=== PATIENT | female | born 1995 ===

== ENCOUNTER 2017-03-27 16:10 | Emergency (ER) | payer BC ==
[~2017-03-27] VITALS: Ht 160 cm; Wt 63.5 kg
--- NOTE | 2017-03-27 16:19 | ER Report ---
History and Physical Time Seen By MD: 16:19 HPI/ROS CHIEF COMPLAINT: Vomiting, nausea HISTORY OF PRESENT ILLNESS: 22-year-old female patient presents to emergency room with complaint of vomiting, nausea. Patient states this been going on today. She states that she's vomited shortly after every meal. She denies having any fevers, chills, sore throat, headache. She states that she's felt nauseated throughout the day. Patient states her last visit. Was approximately one week ago. She states she has a IUD she is using for control. Patient does not believe she can be . Patient states she has pain right upper quadrant. REVIEW OF SYSTEMS: Respiratory: No cough, no dyspnea. Cardiovascular: No chest pain, no palpitations. Gastrointestinal: As noted above Musculoskeletal: No back pain. Allergies: Coded Allergies: No Known Drug Allergies (Unverified , 03/27/17) Home Meds Active Scripts Ondansetron (ZOFRAN ODT) 4 Mg Tab.rapdis, 4 MG PO Q6H Y for NAUSEA/VOMITING, # 20 TAB.CHIQUITA Prov:KIMMIE NARVAEZ BODY MAKER 03/27/17 Past Medical/Surgical History Patient has a past medical history of asthma, pneumonia, anemia, PTSD. Patient has no pertinent surgical history. Reviewed Nurses Notes: Yes Constitutional Vital Sign - Last 24 Hours 03/27/17 16:19 Temp 97.8 Pulse 104 Resp 14 B/P (MAP) 123/88 Pulse Ox 96 O2 Delivery Room Air Physical Exam General Appearance: The patient is alert, has no immediate need for airway protection and no current signs of toxicity. ENT: Tympanic membranes are pearly-farmer, auditory canals are patent, mucous membranes are moist. Respiratory: Chest is non tender, lungs are clear to auscultation. Cardiac: regular rate and rhythm Gastrointestinal: Abdomen is soft and mildly tender in the right upper quadrant , no masses, bowel sounds normal. Musculoskeletal: Neck: Neck is supple and non tender. Extremities have full range of motion and are non tender. Skin: No rashes or lesions. DIFFERENTIAL DIAGNOSIS: After history and physical exam differential diagnosis was considered for nausea and vomiting including but not limited to gastroenteritis, gastritis, appendicitis, and medication side effect. Medical Decision Making Data Points Result Diagram: 03/27/17 1635 03/27/17 1635 Laboratory Hematology Test 03/27/17 16:14 03/27/17 16:35 Urine Color Yellow Urine Clarity Slightly-cloudy Urine pH 7.0 pH (4.8-9.5) Urine Specific Grants 1.020 Urine Protein Negative mg/dL (NEGATIVE) Urine Glucose (UA) Negative mg/dL (NEGATIVE) Urine Ketones Negative mg/dL (NEGATIVE) Urine Blood Negative (NEGATIVE) Urine Nitrite Negative (NEGATIVE) Urine Bilirubin Negative (NEGATIVE) Urine Urobilinogen Negative mg/dL (0.2-1.9) Urine Leukocyte Esterase Negative (NEGATIVE) Urine RBC 1 /HPF (0-2/HPF) Urine WBC 1 /HPF (0-5/HPF) Urine Squamous Epithelial Cells Many /LPF (</=FEW) Urine Bacteria Few /HPF (NONE-FEW) Urine Mucus None /HPF (NONE-FEW) Red Blood Count 5.50 M/uL (4.17-5.56) Mean Corpuscular Volume 83.5 fL (80.0-96.0) Mean Corpuscular Hemoglobin 28.4 pg (26.0-33.0) Mean Corpuscular Hemoglobin Concent 34.0 g/dL (32.0-36.0) Red Cell Distribution Width 13.6 % (11.5-14.5) Mean Platelet Volume 6.7 fL (7.2-11.1) Neutrophils (%) (Auto) 55.9 % (39.4-72.5) Lymphocytes (%) (Auto) 34.4 % (17.6-49.6) Monocytes (%) (Auto) 7.6 % (4.1-12.4) Eosinophils (%) (Auto) 1.5 % (0.4-6.7) Basophils (%) (Auto) 0.6 % (0.3-1.4) Nucleated RBC Relative Count (auto) 0.0 /100WBC Neutrophils # (Auto) 3.4 K/uL (2.0-7.4) Lymphocytes # (Auto) 2.1 K/uL (1.3-3.6) Monocytes # (Auto) 0.5 K/uL (0.3-1.0) Eosinophils # (Auto) 0.1 K/uL (0.0-0.5) Basophils # (Auto) 0.0 K/uL (0.0-0.1) Nucleated RBC Absolute Count (auto) 0.00 K/uL Sodium Level 139 mmol/L (137-145) Potassium Level 3.5 mmol/L (3.5-5.0) Chloride Level 99 mmol/L (98-107) Carbon Dioxide Level 26 mmol/L (22-31) Blood Urea Nitrogen 9 mg/dl (7-18) Creatinine 0.80 mg/dl (0.52-1.04) Glomerular Filtration Rate Calc > 60.0 Random Glucose 104 mg/dl (75-110) Calcium Level 9.8 mg/dl (8.4-10.2) Total Bilirubin 0.6 mg/dl (0.2-1.3) Aspartate Amino Transf (AST/SGOT) 27 U/L (0-35) Alanine Aminotransferase (ALT/SGPT) 34 U/L (0-56) Alkaline Phosphatase 76 U/L (0-126) Total Protein 8.2 gm/dl (6.3-8.2) Albumin 4.6 g/dl (3.5-5.0) Amylase Level 61 U/L (0-110) Lipase 84 U/L (23-300) Human Chorionic Gonadotropin, Qual Negative (NEGATIVE) Chemistry Test 03/27/17 16:14 03/27/17 16:35 Urine Color Yellow Urine Clarity Slightly-cloudy Urine pH 7.0 pH (4.8-9.5) Urine Specific Grants 1.020 Urine Protein Negative mg/dL (NEGATIVE) Urine Glucose (UA) Negative mg/dL (NEGATIVE) Urine Ketones Negative mg/dL (NEGATIVE) Urine Blood Negative (NEGATIVE) Urine Nitrite Negative (NEGATIVE) Urine Bilirubin Negative (NEGATIVE) Urine Urobilinogen Negative mg/dL (0.2-1.9) Urine Leukocyte Esterase Negative (NEGATIVE) Urine RBC 1 /HPF (0-2/HPF) Urine WBC 1 /HPF (0-5/HPF) Urine Squamous Epithelial Cells Many /LPF (</=FEW) Urine Bacteria Few /HPF (NONE-FEW) Urine Mucus None /HPF (NONE-FEW) White Blood Count 6.1 k/uL (4.5-11.0) Red Blood Count 5.50 M/uL (4.17-5.56) Hemoglobin 15.6 g/dL (12.0-16.0) Hematocrit 45.9 % (34.0-47.0) Mean Corpuscular Volume 83.5 fL (80.0-96.0) Mean Corpuscular Hemoglobin 28.4 pg (26.0-33.0) Mean Corpuscular Hemoglobin Concent 34.0 g/dL (32.0-36.0) Red Cell Distribution Width 13.6 % (11.5-14.5) Platelet Count 255 K/uL (150-450) Mean Platelet Volume 6.7 fL (7.2-11.1) Neutrophils (%) (Auto) 55.9 % (39.4-72.5) Lymphocytes (%) (Auto) 34.4 % (17.6-49.6) Monocytes (%) (Auto) 7.6 % (4.1-12.4) Eosinophils (%) (Auto) 1.5 % (0.4-6.7) Basophils (%) (Auto) 0.6 % (0.3-1.4) Nucleated RBC Relative Count (auto) 0.0 /100WBC Neutrophils # (Auto) 3.4 K/uL (2.0-7.4) Lymphocytes # (Auto) 2.1 K/uL (1.3-3.6) Monocytes # (Auto) 0.5 K/uL (0.3-1.0) Eosinophils # (Auto) 0.1 K/uL (0.0-0.5) Basophils # (Auto) 0.0 K/uL (0.0-0.1) Nucleated RBC Absolute Count (auto) 0.00 K/uL Glomerular Filtration Rate Calc > 60.0 Calcium Level 9.8 mg/dl (8.4-10.2) Total Bilirubin 0.6 mg/dl (0.2-1.3) Aspartate Amino Transf (AST/SGOT) 27 U/L (0-35) Alanine Aminotransferase (ALT/SGPT) 34 U/L (0-56) Alkaline Phosphatase 76 U/L (0-126) Total Protein 8.2 gm/dl (6.3-8.2) Albumin 4.6 g/dl (3.5-5.0) Amylase Level 61 U/L (0-110) Lipase 84 U/L (23-300) Human Chorionic Gonadotropin, Qual Negative (NEGATIVE) Urinalysis Test 03/27/17 16:14 Urine Color Yellow Urine Clarity Slightly-cloudy Urine pH 7.0 pH (4.8-9.5) Urine Specific Grants 1.020 Urine Protein Negative mg/dL (NEGATIVE) Urine Glucose (UA) Negative mg/dL (NEGATIVE) Urine Ketones Negative mg/dL (NEGATIVE) Urine Blood Negative (NEGATIVE) Urine Nitrite Negative (NEGATIVE) Urine Bilirubin Negative (NEGATIVE) Urine Urobilinogen Negative mg/dL (0.2-1.9) Urine Leukocyte Esterase Negative (NEGATIVE) Urine RBC 1 /HPF (0-2/HPF) Urine WBC 1 /HPF (0-5/HPF) Urine Squamous Epithelial Cells Many /LPF (</=FEW) Urine Bacteria Few /HPF (NONE-FEW) Urine Mucus None /HPF (NONE-FEW) EKG/Imaging Imaging Abdominal series with single view of the chest: 03/27/2017 4:31 PM HISTORY: Right-sided abdominal pain, nausea and vomiting. COMPARISON:none. FINDINGS: Some stool seen throughout colon. Bowel gas pattern is nonobstructed and nondilated. Abdominal soft tissues are grossly normal without suspicious lucencies or abnormal callus cases. IUD seen in the pelvis. No acute bony abnormality. Lungs show no consolidation, pleural effusion, pneumothorax or nodule. Cardiomediastinal silhouette and pulmonary vessels within normal limits. No acute bony abnormality. IMPRESSION: 1. Unremarkable exam of the abdomen. 2. No acute cardiopulmonary process. Report Dictated By: Cristhian Marcial at 03/27/2017 5:27 PM Report E-Signed By: Cristhian Marcial at 03/27/2017 5:28 PM ED Course/Re-evaluation ED Course Patient was admitted to exam room, history and physical obtained. Differential diagnoses were considered. On examination patient had mild tenderness in the right upper quadrant. A CBC, CMP, amylase, lipase, acute abdominal x-ray were done. Lab results were unremarkable, the x-ray was also unremarkable. Urinalysis was obtained which was also negative. I discussed the findings with patient. We'll go ahead and discharge her at this time. Patient will be given Zofran to help with nausea. Patient verbalized understanding and agreement with plan. Decision to Disposition Date: Mar 27, 2017 Decision to Disposition Time: 17:42 Depart Departure Latest Vital Signs Vital Signs Date Time Temp Pulse Resp B/P (MAP) Pulse Ox O2 Delivery O2 Flow Rate FiO2 03/27/17 16:19 97.8 104 14 123/88 96 Room Air Impression: Primary Impression: Gastroenteritis Condition: Improved Disposition: HOME OR SELF-CARE New Scripts Ondansetron (ZOFRAN ODT) 4 Mg Tab.rapdis 4 MG PO Q6H Y for NAUSEA/VOMITING, #20 TAB.CHIQUITA Prov: KIMMIE NARVAEZ 03/27/17 Patient Instructions: Gastroenteritis (ED) Additional Instructions: Increase fluid intake. Clear liquid diet for the next 24-48 hours. After that you may advance diet as tolerated starting with complex carbohydrates ; rice, bread or pasta. Follow up with your primary care provider in the next week. Return to the ER if condition worsens. KIMMIE NARVAEZ Mar 27, 2017 16:19
[2017-03-27 16:30] VITALS: BP 116/87
[2017-03-27] MEDS ORDERED: NS(*) 0.9% 1000 ML BAG 1,000 ML IV ONE (16:31)
[2017-03-27] MEDS ORDERED: ONDANSETRON 4 MG/2 ML VIAL IVP ONE (16:35)
[2017-03-27 16:40] LABS: PLATELET COUNT, AUTOMATED 255 K/uL (150-450)
--- NOTE | 2017-03-27 17:31 | RADIOLOGY IMAGING REPORT ---
FACILITY: [facility] - [place] PATIENT NAME: Cheryl Boo : 1995 MR: [id number] V: [id number] EXAM DATE: ORDERING PHYSICIAN: KIMMIE NARVAEZ TECHNOLOGIST: Location: [facility] [place] Patient: Cheryl Boo : 1995 Visit/Account:[id number] Date of Sevice: 03/27/2017 Abdominal series with single view of the chest: 03/27/2017 4:31 PM HISTORY: Right-sided abdominal pain, nausea and vomiting. COMPARISON:none. FINDINGS: Some stool seen throughout colon. Bowel gas pattern is nonobstructed and nondilated. Abdom inal soft tissues are grossly normal without suspicious lucencies or abnormal callus cases. IUD seen in the pelvis. No acute bony abnormality. Lungs show no consolidation, pleural effusion, pneumothorax or nodule. Cardiomediastinal silhouette and pulmonary vessels within normal limits. No acute bony abnormality. IMPRESSION: 1. Unremarkable exam of the abdomen. 2. No acute cardiopulmonary process. Report Dictated By: Cristhian Marcial at 03/27/2017 5:27 PM Report E-Signed By: Cristhian Marcial at 03/27/2017 5:28 PM WSN:[id number]
[2017-03-27] MEDS ORDERED: ONDA4TAB PO (17:41)
== END 2017-03-27 17:56 | disposition home or self-care (01) ==
LOC: ER 16:19
DX: K52.9 Noninfective gastroenteritis and colitis, unspecified (principal)
CPT/HCPCS: 74022; 81001; 82150; 83690; 84703; 85025; 96361; 96374; 99284; J2405; J7030; 82040; 82247; 82310; 82374; 82435; 82565; 82947; 84075; 84132; 84155; 84295; 84450; 84460; 84520

== ENCOUNTER 2018-01-07 10:10 | Emergency (ER) | payer BC ==
[~2018-01-07 10:10] MED LIST: ONDA4TAB PO
--- NOTE | 2018-01-07 10:15 | ER Report ---
History and Physical Time Seen By MD: 10:12 HPI/ROS CHIEF COMPLAINT: Ear pain and sinus pressure HISTORY OF PRESENT ILLNESS: Patient is a 22-year-old female who is otherwise healthy who presents with about a week and a half worth of upper respiratory symptoms including stuffy nose B/L lateral ear pain right greater than left, and nasal congestion. Patient reports feeling sick approximately 2 weeks ago had an interval where she improved and then started feeling ill again over the past few days. Reports that she is a smoker. Denies any chest pain or cough. REVIEW OF SYSTEMS: ENT: Bilateral ear pain nasal congestion. Respiratory: No cough, no dyspnea. Cardiovascular: No chest pain, no palpitations. Gastrointestinal: No vomiting, no abdominal pain. Musculoskeletal: No back pain. Allergies: Coded Allergies: No Known Drug Allergies (Unverified , 01/07/18) Home Meds Active Scripts Pseudoephedrine Hcl (SUDAFED 12 HOUR) 120 Mg Tablet.er, 120 MG PO Q12H for congestion, #30 TAB 0 Refills Prov:MARGAUX GARCIA MD 01/07/18 Amoxicillin/Pot Clav 875-125 Mg Tab (AUGMENTIN 875-125 TABLET) 1 Each Tablet, 1 TAB PO Q12H for 10 Days, #20 TAB 0 Refills Prov:MARGAUX GRACIA MD 01/07/18 Discontinued Scripts Ondansetron (ZOFRAN ODT) 4 Mg Tab.rapdis, 4 MG PO Q6H PRN for NAUSEA/VOMITING, #20 TAB.CHIQUITA Prov:KIMMIE NARVAEZ DRAPERY EXAMINER 03/27/17 Past Medical/Surgical History Noncontributory Hx Substance Use Disorder: No Hx Alcohol Use: No Constitutional Vital Sign - Last 24 Hours 01/07/18 01/07/18 10:14 10:54 Temp 98.2 Pulse 102 Resp 20 B/P (MAP) 115/63 102/74 (83) Pulse Ox 97 O2 Delivery Room Air Physical Exam General Appearance: Alert, no distress. Eyes: Pupils equal and round no pallor or injection. ENT, Mouth: Ears: Tympanic membranes are normal. Mild tenderness to sinuses by percussion Nose: No bleeding. Mouth: Mucous membranes are moist. Throat: No erythema or exudates there is no tonsillar hypertrophy and uvula is midline. Musculoskeletal: Neck is supple non tender, no adenopathy. Skin: Warm and dry, no rashes. Medical Decision Making ED Course/Re-evaluation ED Course Suspect acute sinusitis which she with outpatient antibiotics and decongestants. Decision to Disposition Date: Jan 07, 2018 Decision to Disposition Time: 10:41 Depart Departure Latest Vital Signs Vital Signs Date Time Temp Pulse Resp B/P (MAP) Pulse Ox O2 Delivery O2 Flow Rate FiO2 01/07/18 10:54 102/74 (83) 01/07/18 10:14 98.2 102 20 97 Room Air Impression: Primary Impression: Acute sinusitis Condition: Improved Disposition: HOME OR SELF-CARE New Scripts Pseudoephedrine Hcl (SUDAFED 12 HOUR) 120 Mg Tablet.er 120 MG PO Q12H for congestion, #30 TAB 0 Refills Prov: MARGAUX GARCIA MD 01/07/18 Amoxicillin/Pot Clav 875-125 Mg Tab (AUGMENTIN 875-125 TABLET) 1 Each Tablet 1 TAB PO Q12H for 10 Days, #20 TAB 0 Refills Prov: MARGAUX GARCIA MD 01/07/18 Departure Forms: ER Transition Record, Medications Reconciliation, Off Work/School Form, School or Work Release?: School Number of days to be released: 1 Patient Portal Information Patient Instructions: Sinusitis (ED) Problem Qualifiers Primary Impression: Acute sinusitis Sinusitis location: unspecified location Recurrence: not specified as recurrent Qualified Codes: J01.90 - Acute sinusitis, unspecified MARGAUX GARCIA MD Jan 07, 2018 10:15
[2018-01-07] MEDS ORDERED: AMOX-559 PO (10:42)
[2018-01-07] MEDS ORDERED: PSEU120T69 PO (10:42)
[2018-01-07 10:54] VITALS: BP 102/74
== END 2018-01-07 10:54 | disposition home or self-care (01) ==
LOC: ER 10:24
DX: J01.90 Acute sinusitis, unspecified (principal)
CPT/HCPCS: 99281

== ENCOUNTER 2018-01-09 09:34 | Emergency (ER) | payer BC ==
[~2018-01-09 09:34] MED LIST changes: +AMOX-559 PO; +PSEU120T69 PO
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
[2018-01-09 09:47] VITALS: BP 127/65
[2018-01-09 10:20] LABS: PLATELET COUNT, AUTOMATED 290 K/uL (150-450)
[2018-01-10] MEDS ORDERED: SKYLA (10:19)
[2018-01-10] MEDS ORDERED: MIRT-17 PO (11:53)
[2018-01-10] MEDS ORDERED: MULT-1379 PO (11:58)
[2018-01-10] MEDS ORDERED: HYDR25CA83 PO (11:59)
[2018-01-10] MEDS ORDERED: CHOL10005 PO (12:00)
[2018-01-10] MEDS ORDERED: OMEG-23 PO (12:01)
== END 2018-01-09 12:00 ==
LOC: ER 10:00
DX: F43.23 Adjustment disorder with mixed anxiety and depressed mood (principal)
CPT/HCPCS: 36415; 80305; 80320; 81001; 82040; 82247; 82310; 82374; 82435; 82565; 82947; 84075; 84132; 84155; 84295; 84450; 84460; 84520; 84703; 85025; 87088; 99284

== ENCOUNTER 2018-01-09 11:18 | Inpatient (IN) | payer BC ==
[~2018-01-09] VITALS: Ht 162.6 cm; Wt 72.6 kg
[2018-01-09] MEDS ORDERED: MAG HYD/AL HYD/SIMETH 30ML UDC PO PRN (11:30)
[2018-01-09 12:05] VITALS: BP 118/74
[2018-01-09] MEDS ORDERED: NICOTINE CARTRIDGE 1 EA PO PRN (13:55)
[2018-01-09] MEDS ORDERED: NICOTINE INH SYSTEM 10 MG/INH INH PRN (13:55)
[2018-01-09] MEDS ORDERED: MIRTAZAPINE 15 MG TAB PO SCH (21:00)
[2018-01-10 06:16] VITALS: BP 101/70
[2018-01-10] MEDS ORDERED: MULTIVITAMINS TAB PO SCH (09:00)
[2018-01-10] MEDS ORDERED: SKYLA (10:19)
[2018-01-10] MEDS ORDERED: MIRT-17 PO (11:53)
[2018-01-10] MEDS ORDERED: MULT-1379 PO (11:58)
[2018-01-10] MEDS ORDERED: HYDR25CA83 PO (11:59)
[2018-01-10] MEDS ORDERED: CHOL10005 PO (12:00)
[2018-01-10] MEDS ORDERED: OMEG-23 PO (12:01)
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
== END 2018-01-10 16:54 | disposition home or self-care (01) | DRG 880 ==
LOC: BHS 11:18
PROVIDERS: ADMIT Psychiatry & Neurology Psychiatry; ATTEND Psychiatry & Neurology Psychiatry
DX: F41.9 Anxiety disorder, unspecified (principal); Z55.8 Other problems related to education and literacy; Z81.1 Family history of alcohol abuse and dependence; Z81.8 Family history of other mental and behavioral disorders; Z59.8 Other problems related to housing and economic circumstances

== ENCOUNTER 2018-04-15 15:29 | Emergency (ER) | payer BC ==
[~2018-04-15 15:29] MED LIST changes: +CHOL10005 PO; +HYDR25CA83 PO; +MIRT-17 PO; +MULT-1379 PO; +OMEG-23 PO; +SKYLA
[2018-04-15 15:37] VITALS: BP 105/81
[2018-04-15] MEDS ORDERED: MIRT15TA11 PO (15:37)
--- NOTE | 2018-04-15 15:39 | ER Report ---
History and Physical Time Seen By MD: 15:39 HPI/ROS CHIEF COMPLAINT: Possible UTI HISTORY OF PRESENT ILLNESS: This is a 23 yo female who presents to the ED with urinary symptoms. Patient states that she woke up this morning with pain and burning with urination, pressure in suprapubic area and noted blood and blood clots in urine. Reports taking OTC AZO for pain. Denies menstruating at this time. States she is currently sexually active with no concerns of STIs at this time. Reports she had 3 UTIs one year ago and her symptoms today are the same as during previous UTIs. REVIEW OF SYSTEMS: Respiratory: No cough, no dyspnea. Cardiovascular: No chest pain, no palpitations. Gastrointestinal: No vomiting, no abdominal pain. : As above. Musculoskeletal: No back pain. Allergies: Coded Allergies: No Known Drug Allergies (Unverified , 04/15/18) Home Meds Active Scripts Cephalexin 500 Mg Tab (KEFLEX 500 MG TAB) 500 Mg Tablet, 500 MG PO Q12H for 5 Days, #10 TAB 0 Refills Prov:DANILO SCHUSTER CATTLE MANAGER-BC 04/15/18 Reported Medications Mirtazapine (MIRTAZAPINE) 15 Mg Tab.rapdis, 15 MG PO PRN for ANXIETY 04/15/18 [tha] No Conflict Check 01/10/18 Discontinued Reported Medications [place]-3 Fatty Acids/Fish Oil (FISH OIL 1,000 MG SOFTGEL) 1 Each Capsule, 1 EACH PO QDAY, CAPSULE 01/10/18 Cholecalciferol (Vitamin D3) (VITAMIN D3) 1,000 Unit Tablet, 1000 UNIT PO QDAY, TAB 01/10/18 Hydroxyzine Pamoate (VISTARIL) 25 Mg Capsule, 25-50 MG PO Q6H PRN for ANXIETY, CAPSULE 01/10/18 Multivits,Th W-Fe,Other Min (THERA-M) 1 Each Tablet, 1 EACH PO QDAY 01/10/18 Mirtazapine (REMERON) 15 Mg Tab.rapdis, 7.5-15 MG PO QHS TAKE 1/2 TO ONE PILL ABOUT AN HOUR BEFORE YOU PLAN TO GO TO SLEEP 01/10/18 Past Medical/Surgical History The patient has a past medical and surgical history of asthma, pneumonia, wears glasses, mild hearing deficit, anemia, PTSD, anxiety, suicide attempt, wisdom tooth extraction. Reviewed Nurses Notes: Yes Hx Smoking: Yes Smoking Status: Never Smoker Exposure to Second Hand Smoke?: Yes Hx Substance Use Disorder: No Hx Alcohol Use: Yes Constitutional Vital Sign - Last 24 Hours 04/15/18 15:37 Temp 97.6 Pulse 83 Resp 16 B/P (MAP) 105/81 Pulse Ox 98 O2 Delivery Room Air Physical Exam General Appearance: The patient is alert, has no immediate need for airway protection and no current signs of toxicity. Respiratory: Chest is non tender, lungs are clear to auscultation. Cardiac: regular rate and rhythm Gastrointestinal: Abdomen is soft and non tender, no masses, bowel sounds normal. : Suprapubic discomfort with palpation, otherwise unremarkable. Musculoskeletal: Neck: Neck is supple and non tender. No CVA tenderness. Extremities have full range of motion and are non tender. Skin: No rashes or lesions. DIFFERENTIAL DIAGNOSIS: After history and physical exam differential diagnosis was considered for urinary tract infection, STDs, constipation, pelvic inflammatory disease, vaginitis, pyelonephritis Medical Decision Making Data Points Laboratory Hematology Test 04/15/18 15:30 Urine Color Yellow Urine Clarity Slightly-cloudy Urine pH 6.0 pH (4.8-9.5) Urine Specific [place] 1.013 Urine Protein 30 mg/dL (NEGATIVE) Urine Glucose (UA) Negative mg/dL (NEGATIVE) Urine Ketones Negative mg/dL (NEGATIVE) Urine Blood Large (NEGATIVE) Urine Nitrite Negative (NEGATIVE) Urine Bilirubin Negative (NEGATIVE) Urine Urobilinogen Negative mg/dL (0.2-1.9) Urine Leukocyte Esterase Small (NEGATIVE) Urine RBC 519 /HPF (0-2/HPF) Urine WBC 72 /HPF (0-5/HPF) Urine Squamous Epithelial Cells Many /LPF (</=FEW) Urine Bacteria Few /HPF (NONE-FEW) Urine Mucus None /HPF (NONE-FEW) Chemistry Test 04/15/18 15:30 Urine Color Yellow Urine Clarity Slightly-cloudy Urine pH 6.0 pH (4.8-9.5) Urine Specific [place] 1.013 Urine Protein 30 mg/dL (NEGATIVE) Urine Glucose (UA) Negative mg/dL (NEGATIVE) Urine Ketones Negative mg/dL (NEGATIVE) Urine Blood Large (NEGATIVE) Urine Nitrite Negative (NEGATIVE) Urine Bilirubin Negative (NEGATIVE) Urine Urobilinogen Negative mg/dL (0.2-1.9) Urine Leukocyte Esterase Small (NEGATIVE) Urine RBC 519 /HPF (0-2/HPF) Urine WBC 72 /HPF (0-5/HPF) Urine Squamous Epithelial Cells Many /LPF (</=FEW) Urine Bacteria Few /HPF (NONE-FEW) Urine Mucus None /HPF (NONE-FEW) Urinalysis Test 04/15/18 15:30 Urine Color Yellow Urine Clarity Slightly-cloudy Urine pH 6.0 pH (4.8-9.5) Urine Specific [place] 1.013 Urine Protein 30 mg/dL (NEGATIVE) Urine Glucose (UA) Negative mg/dL (NEGATIVE) Urine Ketones Negative mg/dL (NEGATIVE) Urine Blood Large (NEGATIVE) Urine Nitrite Negative (NEGATIVE) Urine Bilirubin Negative (NEGATIVE) Urine Urobilinogen Negative mg/dL (0.2-1.9) Urine Leukocyte Esterase Small (NEGATIVE) Urine RBC 519 /HPF (0-2/HPF) Urine WBC 72 /HPF (0-5/HPF) Urine Squamous Epithelial Cells Many /LPF (</=FEW) Urine Bacteria Few /HPF (NONE-FEW) Urine Mucus None /HPF (NONE-FEW) ED Course/Re-evaluation ED Course The patient was admitted to room. A history and physical obtained. Differential diagnoses were considered. A UA was collected, suggestive of a urinary tract infection. She was symptomatic, will treat with Keflex. Patient was agreeable with this plan of care, a prescription was sent to the patient's pharmacy. Instructed to take medications as directed, drink plenty of fluids follow-up with [facility] for reevaluation in one week. Patient was understanding and was discharged home. Decision to Disposition Date: Apr 15, 2018 Decision to Disposition Time: 16:40 Depart Departure Latest Vital Signs Vital Signs Date Time Temp Pulse Resp B/P (MAP) Pulse Ox O2 Delivery O2 Flow Rate FiO2 04/15/18 15:37 97.6 83 16 105/81 98 Room Air Impression: Primary Impression: UTI (urinary tract infection) Condition: Improved Disposition: HOME OR SELF-CARE New Scripts Cephalexin 500 Mg Tab (KEFLEX 500 MG TAB) 500 Mg Tablet 500 MG PO Q12H for 5 Days, #10 TAB 0 Refills Prov: DANILO SCHUSTER CATTLE MANAGER-BC 04/15/18 Patient Instructions: Urinary Tract Infection in Women (ED) Additional Instructions: Drink plenty of fluids Get plenty of rest Follow up within 7 days with primary care provider Problem Qualifiers Primary Impression: UTI (urinary tract infection) Urinary tract infection type: acute cystitis Hematuria presence: with hematuria Qualified Codes: N30.01 - Acute cystitis with hematuria DANILO SCHUSTERP-BC Apr 15, 2018 15:39
[2018-04-15] MEDS ORDERED: CEPH500T7 PO (16:44)
== END 2018-04-15 17:15 | disposition home or self-care (01) ==
LOC: ER 15:41
DX: N30.01 Acute cystitis with hematuria (principal)
CPT/HCPCS: 81001; 99282

== ENCOUNTER 2018-04-21 16:54 | Emergency (ER) | payer BC ==
[~2018-04-21 16:54] MED LIST changes: +CEPH500T7 PO; +MIRT15TA11 PO
[2018-04-21 16:59] VITALS: BP 127/95
[2018-04-21] MEDS ORDERED: CEPH500T7 PO (17:09)
[2018-04-21] MEDS ORDERED: SULF-198 PO (17:09)
--- NOTE | 2018-04-21 17:13 | ER Report ---
History and Physical Time Seen By MD: 17:08 Hx. of Stated Complaint: PAIN, REDNESS OF RIGHT BREAST - PIERCED END OF FEBRUARY HPI/ROS CHIEF COMPLAINT: painful red breast HISTORY OF PRESENT ILLNESS: Pt states that she had her nipple pieced end of February. PT states that a few days ago started with a swollen lymph node in her right axilla. States that a day later noticed redness around her nipple which has now moved to right lateral aspect of her breast. Pt denies any nipple discharge. PT still with piercing. Came in to be checked. PT was just on abx for uti. states uti is better. States that when she stopped the abx that is when the breast started to become red. no fevers REVIEW OF SYSTEMS: Constitutional: No fever, no chills. Eyes: No discharge. ENT: No sore throat. Cardiovascular: No chest pain, no palpitations. Respiratory: No cough, no shortness of breath. Gastrointestinal: No abdominal pain, no vomiting. Genitourinary: No hematuria. Musculoskeletal: No back pain. Skin: No rashes, + redness to r breast. Neurological: No headache. Allergies: Coded Allergies: No Known Drug Allergies (Unverified , 04/21/18) Home Meds Active Scripts Cephalexin 500 Mg Tab (KEFLEX 500 MG TAB) 500 Mg Tablet, 500 MG PO TID, #21 TAB Prov:ROYA HILLS V DO 04/21/18 Sulfamethoxazole/Trimet 800-160 Mg Tab (BACTRIM DS TABLET) 1 Each Tablet, 1 TAB PO Q12H, #14 TAB Prov:ROYA HILLS V DO 04/21/18 Reported Medications Mirtazapine (MIRTAZAPINE) 15 Mg Tab.rapdis, 15 MG PO PRN for ANXIETY 04/15/18 [tha] No Conflict Check 01/10/18 Discontinued Reported Medications [place]-3 Fatty Acids/Fish Oil (FISH OIL 1,000 MG SOFTGEL) 1 Each Capsule, 1 EACH PO QDAY, CAPSULE 01/10/18 Cholecalciferol (Vitamin D3) (VITAMIN D3) 1,000 Unit Tablet, 1000 UNIT PO QDAY, TAB 01/10/18 Hydroxyzine Pamoate (VISTARIL) 25 Mg Capsule, 25-50 MG PO Q6H PRN for ANXIETY, CAPSULE 11/30/18 Multivits,Th W-Fe,Other Min (THERA-M) 1 Each Tablet, 1 EACH PO QDAY 01/10/18 Mirtazapine (REMERON) 15 Mg Tab.rapdis, 7.5-15 MG PO QHS TAKE 1/2 TO ONE PILL ABOUT AN HOUR BEFORE YOU PLAN TO GO TO SLEEP 01/10/18 Discontinued Scripts Cephalexin 500 Mg Tab (KEFLEX 500 MG TAB) 500 Mg Tablet, 500 MG PO Q12H for 5 Days, #10 TAB 0 Refills Prov:DANILO SCHUSTER ENTRY LEVEL ADMINISTRATIVE ASSISTANT-BC 04/15/18 Past Medical/Surgical History PMhx: PTSD, Anxiety Pshx: wisdom teeth Reviewed Nurses Notes: Yes Old Medical Records Reviewed: Yes Hx Smoking: Yes Smoking Status: Never Smoker Exposure to Second Hand Smoke?: Yes Hx Substance Use Disorder: No Hx Alcohol Use: Yes Constitutional Vital Sign - Last 24 Hours 04/21/18 16:59 Temp 98.1 Pulse 95 Resp 20 B/P (MAP) 127/95 Pulse Ox 95 Physical Exam General Appearance: The patient is alert, has no immediate need for airway protection and no signs of toxicity. Eyes: Pupils equal and round no pallor or injection Respiratory: There are no retractions, lungs are clear to auscultation. Cardiovascular: Regular rate and rhythm. pulses are equal and symmetrical Neurological: Cranial nerves II-XII grossly intact, Skin: Warm and dry, No nipple drainage; + erythema starting at right of nipple and moving to right side of breast with increased warmth Breast exam: no palpable mass or abscess palpated Musculoskeletal: Neck is supple non tender, no vertebral tenderness Extremities are nontender, nonswollen and have full range of motion. DIFFERENTIAL DIAGNOSIS: After history and physical exam differential diagnosis was considered for cellulitis, abscess Medical Decision Making ED Course/Re-evaluation ED Course Will start pt on abx. Will cover incase of MRSA. Pt breast is marked. If worsening will need to return for possible IV abx Decision to Disposition Date: Apr 21, 2018 Decision to Disposition Time: 17:21 Depart Departure Latest Vital Signs Vital Signs Date Time Temp Pulse Resp B/P (MAP) Pulse Ox O2 Delivery O2 Flow Rate FiO2 04/21/18 16:59 98.1 95 20 127/95 95 Impression: Primary Impression: Cellulitis of breast Condition: Condition Unchanged Disposition: HOME OR SELF-CARE New Scripts Cephalexin 500 Mg Tab (KEFLEX 500 MG TAB) 500 Mg Tablet 500 MG PO TID, #21 TAB Prov: ROYA HILLS DO 04/21/18 Sulfamethoxazole/Trimet 800-160 Mg Tab (BACTRIM DS TABLET) 1 Each Tablet 1 TAB PO Q12H, #14 TAB Prov: ROYA HILLS DO 04/21/18 Patient Instructions: Cellulitis (ED) Additional Instructions: You have a skin infection on your right breast called cellulitis. We need to treat you with two antibiotics: Keflex 500mg three times a day bactrim twice a day. We marked your infection with a marker. If the redness goes significantly beyond the marker you are failing out patient antibiotics and should be rechecked. ROYA HILLS DO Apr 21, 2018 17:13
[2018-04-21] MEDS ORDERED: CEPHALEXIN MONO 500 MG CAP PO ONE (17:15)
[2018-04-21] MEDS ORDERED: TRIMETH/SULFA DS 160-800MG TAB PO ONE (17:15)
== END 2018-04-21 17:24 | disposition home or self-care (01) ==
LOC: ER 16:59
DX: N61.0 Mastitis without abscess (principal)
CPT/HCPCS: 99283